=== PATIENT | female | born 1990 | race Caucasian/White ===

== ENCOUNTER 2022-12-04 14:59 | Outpatient (REF) | payer OTHER, MEDICAID, SELFPAY ==
--- NOTE | ~2022-12-04 | XR_ITS ---
EXAMINATION: XR SCOLIOSIS CLINICAL INFORMATION: Chronic back pain. Mild curvature on clinical exam. COMPARISON: None available. TECHNIQUE: 2 frontal views of the dorsal and lumbar spine are obtained with patient weightbearing. FINDINGS: No visible intrinsic vertebral anomalies. The 12th ribs are hypoplastic. There are 12 rib-bearing thoracic vertebrae and 5 nonrib-bearing lumbar vertebrae. The SI joints are unremarkable. The vertebral bodies appear normal in height on the frontal views. No paraspinal soft tissue swelling. Normal bony mineralization. Mild dextrocurvature midthoracic spine, approximately 7 degrees. Mild levocurvature lower thoracic spine, approximately 7 degrees. Mild dextrocurvature mid lumbar spine, approximately 5 degrees. XR/XR scoliosis survey IMPRESSION: Mild curvature thoracic and lumbar spine as described. No intrinsic vertebral anomalies.
== END 2022-12-04 15:00 | disposition home or self-care (01) ==
LOC: HO.XRAY 14:59
PROVIDERS: PCP Registered Nurse; Visit Provider Registered Nurse
DX: M54.50 Low back pain, unspecified (principal)
CPT/HCPCS: 72082

== ENCOUNTER 2023-05-04 10:50 | Outpatient (REF) | payer MEDICAID, SELFPAY ==
[2023-05-04 14:03] LABS: Alanine Aminotransferase 16 U/L (0-31); Albumin Level 4.2 g/dL (3.5-5.0); Alkaline Phosphatase 77 U/L (39-117); Anion Gap 12 (12-20); Aspartate Amino Transferase 13 U/L (5-31); Bilirubin Total 0.5 mg/dL (0.0-1.0); Blood Urea Nitrogen 13 mg/dL (9-16); Calcium 9.2 mg/dL (8.4-10.2); Carbon Dioxide 26 mmol/L (22-29); Chloride 101 mmol/L (96-108); Cholesterol 213 mg/dL; Estimated Glomerular Filt Rate > 60; Glucose Random 301 mg/dL (60-115); HDL Cholesterol 66 mg/dL; LDL Cholesterol Calculated 127 mg/dl; Potassium 4.4 mmol/L (3.3-5.1); Sodium 135 mmol/L (135-145); Total Protein 7.7 g/dL (6.5-8.0); Triglycerides 102 mg/dL
[2023-05-04 14:33] LABS: Creatinine Urine 107.38 mg/dL; Microalbumin Urine < 5.0 mg/L
== END 2023-05-04 10:51 | disposition home or self-care (01) ==
LOC: HO.HHCL 10:50
PROVIDERS: Visit Provider Registered Nurse
DX: E10.42 Type 1 diabetes mellitus with diabetic polyneuropathy (principal)
CPT/HCPCS: 36415; 80053; 80061; 82043

== ENCOUNTER 2023-06-30 15:04 | Outpatient (REF) | payer MEDICAID, SELFPAY ==
[2023-06-30 17:34] LABS: Ferritin 59 ng/mL (10-122)
== END 2023-06-30 15:05 | disposition home or self-care (01) ==
LOC: HO.HHCL 15:04
PROVIDERS: Visit Provider Registered Nurse
DX: N92.0 Excessive and frequent menstruation with regular cycle (principal)
CPT/HCPCS: 36415; 82728; 85025